=== PATIENT | female | born 1990 | race Caucasian/White ===

== ENCOUNTER 2023-04-21 10:08 | Emergency (ER) | payer SELFPAY ==
[2023-04-21 10:09] VITALS: BP 143/88; PULSE 86; RESP 14; TEMP 36.3; O2SAT 98; BMI 40.9
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
--- NOTE | 2023-04-21 11:15 | CT_ITS ---
STUDY: CT BRAIN WITHOUT CONTRAST REASON FOR EXAM: Female, 32 years old. HEADACHE RADIATION DOSAGE (If Supplied By Facility): CTDIvol = ( 44.99 ) mGy, DLP = ( 779.24 ) mGycm TECHNIQUE: Transaxial CT imaging of the brain was performed without administration of intravenous contrast material. Individualized dose optimization techniques were used for this CT. COMPARISON: No relevant priors. FINDINGS: Normal soft tissue structures. Normal calvarium. Normal size ventricles and extra-axial spaces for the patient''s age. Normal white matter tracts of the cerebral hemispheres. Normal basal ganglia and thalami. Normal brainstem. Normal cerebellum. There is no intracranial hemorrhage. There are no findings of an acute ischemic infarction. Normal visualized paranasal sinuses. CT/Brain/Head without Contrast IMPRESSION: Normal unenhanced CT scan of the brain. Electronically Signed: Kiran Medrano MD at 12:53 EST ,
[2023-04-21] MEDS: DiphenhydrAMINE 50 MG/ML Syringe 25 MG IV (11:22)
[2023-04-21] MEDS: 0.9% Normal Saline (1000mL) 1,000 ML 999 ML IV (11:22)
[2023-04-21] MEDS: Metoclopramide 10 MG/2 ML Vial IV (11:22)
[2023-04-21] MEDS: Ketorolac 15 MG/ML Vial IV (11:22)
--- OUTSIDE RECORDS SUMMARY | 2023-04-21 13:02 | XMS RPT_ITS | CCD ---
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 in some cases. CLINICAL DECISIONS SHOULD BE BASED ON THE PRIMARY CLINICAL RECORDS. [facility] [employer] [facility]. provides no warranty or guarantee of the accuracy or completeness of information in this document.
== END 2023-04-21 13:06 | disposition home or self-care (01) ==
PROVIDERS: Emergency Provider Student in an Organized Health Care Education/Training Program; PCP Family Medicine; Visit Provider Student in an Organized Health Care Education/Training Program
DX: G44.319 Acute post-traumatic headache, not intractable (principal)
CPT/HCPCS: 70450; 72125; 96361; 96374; 96375; 99283; J7030; A4216

== ENCOUNTER 2023-11-15 09:30 | Outpatient (RCR) | payer SELFPAY ==
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
--- NOTE | 2023-12-12 11:21 | HP.PT.NRP ---
Patient Information Patient Information: MACARIO MIRZA was seen in my office for initial evaluation on 11/04/23. The following Plan of Care was established for this patient: POC Established Initial Frequency: 1x/Week Initial Duration: 2 Weeks Anticipated Interventions Patient/Client Instruction: Educate patient on: Condition and Plan of Care For the Purpose of:: To improve self management Therapeutic Exercise to Include: Strength training, Endurance training, Postural training and Scapular Strength/Stabilization For the Purpose of:: To decrease pain and To improve muscle performance and motor function Last Seen Last Seen: This patient was last seen in our office . Pertinent comments regarding their Physical therapy will appear below: Pt phoned the clinic today to report that she was pain free and wanted to be discharged. At this point I will be discontinuing this patient from physical therapy. I would be happy to see this patient again in the future if found appropriate by the physician. Thank you! River Cantrell, PT, ATC
== END 2023-11-15 19:00 | disposition home or self-care (01) ==
LOC: PT 09:30
PROVIDERS: PCP Family Medicine
DX: M54.2 Cervicalgia (principal)
CPT/HCPCS: 97110; 97161